=== PATIENT | male | born 1995 | race Caucasian/White ===

== ENCOUNTER 2019-04-25 16:21 | Emergency (ER) | payer OTHER ==
[~2019-04-25] VITALS: Ht 182.9 cm; Wt 79.3 kg
[2019-04-25] MEDS ORDERED: ACETAMINOPHEN 325 MG TAB PO ONE (16:45)
[2019-04-25] MEDS ORDERED: LIDOCAINE VISCOUS 2% SOLN 15ML UDC SS ONE (17:00)
[2019-04-25] MEDS ORDERED: IBUPROFEN 800 MG TAB PO ONE (17:00)
[2019-04-25] MEDS ORDERED: ACET-683 PO (17:23)
[2019-04-25] MEDS ORDERED: THERPAK3 PO (17:23)
[2019-04-25] MEDS ORDERED: LIDO2SOL17 PO (17:42)
[2019-04-25 17:58] VITALS: BP 114/81
== END 2019-04-25 17:58 | disposition home or self-care (01) ==
LOC: M ED 16:21
DX: J06.9 Acute upper respiratory infection, unspecified (principal); R07.0 Pain in throat
CPT/HCPCS: 87486; 87581; 87633; 87798; 87880; 99284; U0002

== ENCOUNTER 2019-08-12 20:06 | Emergency (ER) | payer OTHER ==
[~2019-08-12] VITALS: Ht 182.9 cm; Wt 83.0 kg
[~2019-08-12 20:06] MED LIST: ACET-683 PO; LIDO2SOL17 PO; THERPAK3 PO
[2019-08-12] MEDS ORDERED: AUGM875T28 PO (21:23)
[2019-08-12 21:30] VITALS: BP 133/85
[2019-08-12] MEDS ORDERED: AUGMENTIN 875 MG TAB PO ONE (21:30)
[2019-08-12] MEDS ORDERED: NORCO 5/325MG TABLET (BULK FOR ED) PO ONE (21:30)
== END 2019-08-12 21:34 | disposition home or self-care (01) ==
LOC: M ED 20:06
DX: L05.91 Pilonidal cyst without abscess (principal)

== ENCOUNTER 2020-05-05 09:49 | Emergency (ER) | payer OTHER ==
[~2020-05-05] VITALS: Ht 182.9 cm; Wt 85.3 kg
[~2020-05-05 09:49] MED LIST changes: +AUGM875T28 PO
[2020-05-05 11:40] VITALS: BP 121/66
== END 2020-05-05 11:41 | disposition home or self-care (01) ==
LOC: M ED 09:49
DX: R51.9 Headache, unspecified (principal); T58.01XA Toxic effect of carbon monoxide from motor vehicle exhaust, accidental (unintentional), initial encounter; Y92.094 Garage of other non-institutional residence as the place of occurrence of the external cause; Y93.9 Activity, unspecified; Z87.891 Personal history of nicotine dependence